=== PATIENT | female | born 1960 | race American Indian/Alaskan Native ===

== ENCOUNTER 2017-07-07 06:12 | Emergency (ER) | payer MEDICARE ==
[2017-07-07] MEDS ORDERED: ASPIRIN PO ONE (06:55)
[2017-07-07 07:14] LABS: Basophils % (Auto) 0.6 % (0.0-1.8); Eosinophils # (Auto) 0.1 K/mm3 (0.0-0.4); Eosinophils % (Auto) 1.5 % (0.0-4.3); Hematocrit 37.8 % (30.3-42.9); Hemoglobin 12.1 gm/dl (10.1-14.3); Lymphocytes % (Auto) 30.7 % (13.4-35.0); Mean Corpuscular HGB Conc 32 % (30-34); Mean Corpuscular Volume 80 fl (79-97); Monocytes # (Auto) 0.5 K/mm3 (0.0-0.8); Monocytes % (Auto) 7.9 % (0.0-7.3); Platelet Count 299 K/mm3 (140-440); Red Blood Count 4.72 M/mm3 (3.65-5.03); Red Cell Distribution Width 15.2 % (13.2-15.2)
[2017-07-07 07:17] LABS: Mean Corpuscular Hemoglobin 26 pg (28-32)
[2017-07-07 07:41] LABS: BUN/Creatinine Ratio 16; Blood Urea Nitrogen 13 mg/dL (7-17); Calcium 9.3 mg/dL (8.4-10.2); Hemolysis Index 13
[2017-07-07] MEDS ORDERED: ASPIRIN ONE (11:32)
[2017-07-07] MEDS ORDERED: NORCO 7.5/325 ONE (12:40)
[2017-07-07] MEDS ORDERED: NORCO 7.5/325 PO ONE (12:43)
--- NOTE | 2017-07-07 13:37 | Emergency Department Report ---
ED General Adult HPI - General Chief complaint: Chest Pain Stated complaint: RIGHT ARM PAIN Time Seen by Provider: 07/07/17 10:59 Source: patient Mode of arrival: Ambulatory Limitations: No Limitations - History of Present Illness Initial comments: The patient does not complain of chest pain at all. In fact she is here for right arm pain of 2 weeks' duration. She has had this before The very same pain before. About 2 years ago she states she was seen and evaluated at an rate. She subsequently went to physical therapy and the pain improved. Over the last 2 weeks she has not contacted her primary care physician, sandwich machine operator or a diabetic physician. She states that she has no associated symptoms when she has this right arm pain. It is definitely not associated with chest pain. It occurs at rest and is not exacerbated by exertion. She denies any arm swelling. She states that sometimes her left leg swells but is not swollen now. She has no history of venous thromboembolism. She does have a positive cardiac history" 9 stents". She was seen by her sandwich machine operator 3 weeks ago and told everything looks good. Her last cardiac cath was about a year ago and she states it did not show any problem. -: week(s) (2 weeks) Radiation: non-radiation Severity scale (0 -10): 7 Quality: aching Consistency: intermittent, now resolved Improves with: none Worsens with: none Associated Symptoms: denies other symptoms Treatments Prior to Arrival: none - Related Data Home Medications Medication Instructions Recorded Confirmed Last Taken Metoprolol [Lopressor TAB] 100 mg PO BID 01/24/13 07/07/17 07/07/17 sitaGLIPtin [Januvia] 100 mg PO QDAY 01/24/13 07/07/17 07/06/17 Aspirin [Adult Low Dose Aspirin EC] 81 mg PO QDAY 07/07/17 07/07/17 07/07/17 Atorvastatin Calcium [Lipitor] 20 mg PO QDAY 07/07/17 07/07/17 07/07/17 Clopidogrel Bisulfate [Plavix] 75 mg PO QDAY 07/07/17 07/07/17 07/07/17 Ezetimibe [Zetia] 10 mg PO QDAY 07/07/17 07/07/17 07/07/17 ISOSORBIDE MONOnitrate [Imdur ER] 120 mg PO QDAY 0307/07/17 07/06/17 Lisinopril [Zestril] 10 mg PO QDAY 07/07/17 07/07/17 07/07/17 Nitroglycerin [Nitrostat] 0.4 mg SL Q5M PRN 07/07/17 07/07/17 Unknown Ranitidine HCl [Zantac 150 MG TAB] 150 mg PO BID 07/07/17 07/07/17 07/06/17 Ranolazine ER [Ranexa ER] 500 mg PO BID 07/07/17 07/07/17 07/06/17 metFORMIN [Glucophage] 850 mg PO TIDWM 07/07/17 07/07/17 07/07/17 Previous Rx's Medication Instructions Recorded Last Taken Type traMADol [Ultram] 50 mg PO Q6HR PRN #14 tablet 07/07/17 Unknown Rx Allergies Allergy/AdvReac Type Severity Reaction Status Date / Time Penicillins Allergy Swelling Verified 01/24/13 08:59 ED Review of Systems ROS: Stated complaint: RIGHT ARM PAIN Other details as noted in HPI Constitutional: denies: chills, fever Eyes: denies: eye pain, eye discharge, vision change ENT: denies: ear pain, throat pain Respiratory: denies: cough, shortness of breath, wheezing Cardiovascular: denies: chest pain, palpitations Endocrine: no symptoms reported Gastrointestinal: denies: abdominal pain, nausea, diarrhea Genitourinary: denies: urgency, dysuria, discharge Musculoskeletal: as per HPI. denies: back pain, joint swelling, arthralgia Skin: denies: rash, lesions Neurological: denies: headache, weakness, paresthesias Psychiatric: denies: anxiety, depression Hematological/Lymphatic: denies: easy bleeding, easy bruising ED Past Medical Hx - Past Medical History Previous Medical History?: Yes Hx Hypertension: Yes Hx Congestive Heart Failure: No Hx Diabetes: Yes Hx Asthma: No Hx COPD: No Additional medical history: coronary artery disease - Surgical History Past Surgical History?: Yes Hx Coronary Stent: Yes (9 stents) Additional Surgical History: tonsillectomy - Social History Smoking Status: Never Smoker Substance Use Type: None - Medications Home Medications: Home Medications Medication Instructions Recorded Confirmed Last Taken Type Metoprolol [Lopressor TAB] 100 mg PO BID 01/24/13 07/07/17 07/07/17 History sitaGLIPtin [Januvia] 100 mg PO QDAY 01/24/13 07/07/17 07/06/17 History Aspirin [Adult Low Dose Aspirin EC] 81 mg PO QDAY 07/07/17 07/07/17 07/07/17 History Atorvastatin Calcium [Lipitor] 20 mg PO QDAY 07/07/17 07/07/17 07/07/17 History Clopidogrel Bisulfate [Plavix] 75 mg PO QDAY 07/07/17 07/07/17 07/07/17 History Ezetimibe [Zetia] 10 mg PO QDAY 07/07/17 07/07/17 07/07/17 History ISOSORBIDE MONOnitrate [Imdur ER] 120 mg PO QDAY 07/07/17 07/07/17 07/06/17 History Lisinopril [Zestril] 10 mg PO QDAY 07/07/17 07/07/17 07/07/17 History Nitroglycerin [Nitrostat] 0.4 mg SL Q5M PRN 07/07/17 07/07/17 Unknown History Ranitidine HCl [Zantac 150 MG TAB] 150 mg PO BID 07/07/17 07/07/17 07/06/17 History Ranolazine ER [Ranexa ER] 500 mg PO BID 07/07/17 07/07/17 07/06/17 History metFORMIN [Glucophage] 850 mg PO TIDWM 07/07/17 07/07/17 07/07/17 History traMADol [Ultram] 50 mg PO Q6HR PRN #14 tablet 07/07/17 Unknown Rx ED Physical Exam - General Limitations: No Limitations General appearance: alert, in no apparent distress - Head Head exam: Present: atraumatic, normocephalic - Eye Eye exam: Present: normal appearance, PERRL, EOMI. Absent: scleral icterus - ENT ENT exam: Present: mucous membranes moist - Neck Neck exam: Present: normal inspection - Respiratory Respiratory exam: Present: normal lung sounds bilaterally. Absent: respiratory distress - Cardiovascular Cardiovascular Exam: Present: regular rate, normal rhythm. Absent: systolic murmur, diastolic murmur, rubs, gallop - GI/Abdominal GI/Abdominal exam: Present: soft, normal bowel sounds. Absent: distended, tenderness, guarding, rebound, rigid - Extremities Exam Extremities exam: Present: normal inspection, full ROM, normal capillary refill. Absent: tenderness, pedal edema, joint swelling, calf tenderness - Back Exam Back exam: Present: normal inspection. Absent: CVA tenderness (R), CVA tenderness (L) - Neurological Exam Neurological exam: Present: alert, oriented X3, CN II-XII intact. Absent: motor sensory deficit - Psychiatric Psychiatric exam: Present: normal affect, normal mood - Skin Skin exam: Present: warm, dry, intact, normal color. Absent: rash ED Course Vital Signs 07/07/17 07/07/17 07/07/17 06:13 06:50 10:35 Temperature 97.6 F 97.6 F Pulse Rate 69 67 68 Respiratory 18 18 14 Rate Blood Pressure 141/88 141/88 Blood Pressure 108/69 [Left] O2 Sat by Pulse 99 99 99 Oximetry 07/07/17 07/07/17 10:36 12:56 Temperature Pulse Rate Respiratory 14 18 Rate Blood Pressure Blood Pressure [Left] O2 Sat by Pulse Oximetry ED Medical Decision Making - Lab Data Result diagrams: 07/07/17 07:02 07/07/17 07:02 Laboratory Results - last 24 hr 07/07/17 07/07/17 07/07/17 07:02 07:02 09:40 WBC 6.4 RBC 4.72 Hgb 12.1 Hct 37.8 MCV 80 MCH 26 L MCHC 32 RDW 15.2 Plt Count 299 Lymph % (Auto) 30.7 [place] % (Auto) 7.9 H Eos % (Auto) 1.5 Baso % (Auto) 0.6 Lymph # 2.0 [place] # 0.5 Eos # 0.1 Baso # 0.0 Seg Neutrophils % 59.3 Seg Neutrophils # 3.8 Sodium 141 Potassium 5.1 H Chloride 101.8 Carbon Dioxide 26 Anion Gap 18 BUN 13 Creatinine 0.8 Estimated GFR > 60 BUN/Creatinine Ratio 16 Glucose 110 H Calcium 9.3 Troponin T < 0.010 < 0.010 07/07/17 13:02 WBC RBC Hgb Hct MCV MCH MCHC RDW Plt Count Lymph % (Auto) [place] % (Auto) Eos % (Auto) Baso % (Auto) Lymph # [place] # Eos # Baso # Seg Neutrophils % Seg Neutrophils # Sodium Potassium Chloride Carbon Dioxide Anion Gap BUN Creatinine Estimated GFR BUN/Creatinine Ratio Glucose Calcium Troponin T < 0.010 Critical care attestation.: If time is entered above; I have spent that time in minutes in the direct care of this critically ill patient, excluding procedure time. ED Disposition Clinical Impression: Arm pain, right Disposition: [id number] OP ADMIT IP TO THIS HOSP Is pt being admited?: No Does the pt Need Aspirin: No Condition: Stable Instructions: Musculoskeletal Pain (ED) Additional Instructions: Follow-up with your usual physicians. Return any acute change or problem. Rx Ultram needed for pain. Prescriptions: traMADol [Ultram] 50 mg PO Q6HR PRN #14 tablet PRN Reason: Pain Referrals: PRIMARY CARE, [Primary Care Provider] - 3-5 Days Time of Disposition: 13:52
[2017-07-07 14:03] VITALS: BP 106/65
== END 2017-07-07 14:03 | disposition admitted as inpatient to this hospital (09) ==
LOC: ED 06:12
DX: M79.601 Pain in right arm (principal); I10 Essential (primary) hypertension; E11.9 Type 2 diabetes mellitus without complications; I25.10 Atherosclerotic heart disease of native coronary artery without angina pectoris; Z90.89 Acquired absence of other organs; Z95.818 Presence of other cardiac implants and grafts; Z88.0 Allergy status to penicillin
CPT/HCPCS: 36415; 80048; 84484; 85025; 93005; 93010; 99284